=== PATIENT | female | born 1970 | race Caucasian/White ===

== ENCOUNTER 2018-12-16 11:37 | Outpatient (CLI) | payer OTHER | END 2018-12-16 11:38 | disposition home or self-care (01) | LOC: BICMAMMO 11:37 | PROVIDERS: ATTEND Family Medicine | DX: Z12.31 Encounter for screening mammogram for malignant neoplasm of breast (principal); R92.1 Mammographic calcification found on diagnostic imaging of breast; Z80.3 Family history of malignant neoplasm of breast | CPT/HCPCS: 77063; 77067 ==

== ENCOUNTER 2018-12-29 09:41 | Outpatient (CLI) | payer OTHER | END 2018-12-29 09:42 | disposition home or self-care (01) | LOC: BICMAMMO 09:41 | PROVIDERS: ATTEND Family Medicine | DX: R92.1 Mammographic calcification found on diagnostic imaging of breast (principal); Z80.3 Family history of malignant neoplasm of breast | CPT/HCPCS: G0279 ==

== ENCOUNTER → 2019-01-08 | Day surgery (SDC) | payer OTHER ==
--- NOTE | 2019-01-08 08:49 | MMO ---
MAMMO SURGICAL SPECIMEN: Date: 01/08/19 HISTORY: Stereotactic biopsy. COMPARISON: Mammogram dated 12/29/18. FINDINGS: A total of 12 half cores and 6 full cores were obtained through the upper outer right breast calcific ations. Including all of these samples, there is adequate calcifications within the sample. IMPRESSION: Adequate breast calcifications within the sample. POS: MAGDA
--- NOTE | 2019-01-08 09:09 | MMO ---
DIAGNOSTIC RIGHT BREAST MAMMOGRAM: Date: 01/08/19 HISTORY: Breast calcifications. Post stereotactic biopsy clip placement. COMPARISON: Mammogram from 12/29/18. FINDINGS: There is satisfactory appearance of the clip, which is embedded within the breast calcifications. The re is decreased calcification burden in the right upper outer breast. IMPRESSION: Satisfactory clip placement. POS: MAGDA
--- NOTE | 2019-01-08 09:15 | MMO ---
STEREOTACTIC RIGHT BREAST CALCIFICATION BIOPSY: Date: 01/08/19 HISTORY: Right upper outer breast calcifications. COMPARISON: Mammogram dated 12/29/18. FINDINGS: The patient was brought to the stereotactic breast suite. All questions were answered. Informed conse nt obtained. Timeout performed. The patient's right breast was prepped and draped in the normal sterile fashion. A total of 12 one-yang lf cores and a total of 6 full cores were obtained using a 10 gauge needle. Adequate calcifications w ere present within the biopsy specimen. The patient tolerated the procedure well without complication . IMPRESSION: Technically successful stereotactic right breast upper outer calcifications biopsy. POS: MAGDA
== END ==
LOC: MAMMO 06:42
PROVIDERS: ATTEND Family Medicine
PROC: 0HBT3ZX Excision of Right Breast, Percutaneous Approach, Diagnostic (ICD-10-PCS; principal; 2019-01-08)
DX: D05.11 Intraductal carcinoma in situ of right breast (principal); Z88.8 Allergy status to other drugs, medicaments and biological substances
CPT/HCPCS: 19081; 76098; 88305; 88341; 88342; 89060

== ENCOUNTER 2019-03-12 00:03 | Outpatient (CLI) | payer OTHER ==
[2019-03-12 14:09] LABS: #Basophils 0.1 thou/uL (0.0-0.2); #Eosinphils 0.2 thou/uL (0.0-0.7); #Lymphocytes 2.8 thou/uL (1.20-3.40); #Monocytes 0.7 thou/uL (0.11-0.59); #Neutrophils 3.4 thou/uL (1.40-6.50); %Basophils 1.5 % (0.0-1.0); %Eosinophils 2.9 % (0.0-10.0); %Lymphocytes 39.5 % (21.0-51.0); %Monocytes 9.1 % (0.0-10.0); Hemoglobin 9.3 g/dL (12.0-16.0); Mean Corpuscular HGB CONC 31.7 g/dL (32.0-36.0); Mean Corpuscular Hemoglobin 27.9 pg (27.0-31.0); Mean Platelet Volume 8.4 fL (7.4-10.4); Platelet Count 280 thou/uL (130-400); RBC Distribution Width 13.7 % (11.5-14.5); Red Blood Cell (RBC) Count 3.34 mill/uL (4.20-5.40); White Blood Cell (WBC) Count 7.2 thou/uL (4.8-10.8)
[2019-03-12 14:33] LABS: ALT (SGPT) 14 U/L (8-55); AST (SGOT) 17 U/L (5-34); Albumin 4.3 g/dL (3.5-5.0); Alkaline Phosphatase 34 U/L (40-150); Anion Gap 10 mmol/L (10-20); BUN (Urea Nitrogen) 10 mg/dL (7.0-18.7); Bilirubin, Total 0.3 mg/dL (0.2-1.2); Calc. Creatinine Clearance 0 mL/min (70-130); Calcium 10.1 mg/dL (7.8-10.44); Carbon Dioxide 30 mmol/L (22-29); Chloride 102 mmol/L (98-107); Estimated GFR-MDRD 87; Globulin 2.9 g/dL (2.4-3.5); Glucose 83 mg/dL (70-105); Potassium 4.1 mmol/L (3.5-5.1); Protein, Total 7.2 g/dL (6.0-8.3); Sodium 138 mmol/L (136-145)
[2019-03-12 14:36] LABS: BHCG - Serum Negative (NEGATIVE); Pregs Control Background? CLEAR/WHITE (CLR/WHITE); Pregs Control Bar Appear? YES (CONTROL BAR)
== END 2019-03-12 00:04 | disposition home or self-care (01) ==
LOC: LABBT 00:03
PROVIDERS: ATTEND Surgery
DX: Z01.818 Encounter for other preprocedural examination (principal); D05.11 Intraductal carcinoma in situ of right breast
CPT/HCPCS: 80053; 84703; 85025; 93005; 93010

== ENCOUNTER 2019-03-13 07:05 | Day surgery (SDC) | payer OTHER ==
[2019-03-12 11:54] VITALS: BMI 32.0
--- NOTE | 2019-03-13 10:13 | NM ---
RIGHT BREAST LYMPHOSCINTIGRAPHY: INDICATION: DCIS of the right breast Radial pharmaceutical: 365 microcuries of technetium 99m filtered sulfur colloid TECHNIQUE: The right nipple areolar complex was cleansed with alcohol. The radiotracer was injected w ithin the subcutaneous tissues surrounding the nipple areolar complex in 4 separate aliquots. The patient tolerated the injection without difficulty. FINDINGS: There is radiotracer accumulation within the first draining lymph node of the anterior righ t axilla. This was marked on patient's skin. There is radiotracer seen surrounding the right nipple areolar complex. IMPRESSION: Successful right breast lymphoscintigraphy Transcribed Date/Time: 03/13/2019 10:26 AM
[2019-03-13] MEDS ORDERED: Bupivacaine HCl 0.5%/Epinephrine 1:200,000/PF 30 ml Vial ONE (10:24)
[2019-03-13] MEDS ORDERED: Lidocaine 2% PF 5 ML VIAL ONE (10:24)
[2019-03-13] MEDS ORDERED: Isosulfan Blue 50 MG/5 ML VIAL ONE (10:24)
[2019-03-13] MEDS ORDERED: Fentanyl 100 MCG/2 ML VIAL ONE (10:30)
[2019-03-13] MEDS ORDERED: Midazolam HCl 2 mg/2 ml Vial ONE (10:30)
--- NOTE | 2019-03-13 11:50 | MMO ---
The surgical speciman contains the suspicious cluster of microcalcifications, clip and wire. Findings called to Dr. Carrillo in the operating room at 11:45 am 03/13/2019.
--- NOTE | 2019-03-13 11:57 | MMO ---
Right breast mammographic guided needle and wire localization INDICATION: DCIS of the right breast TECHNIQUE: Informed consent was obtained. The biopsy clip and suspicious cluster of calcifications found to represent DCIS seen within the upper outer aspect of the anterior right breast was localized. The right breast was placed in a CC compression. The skin was sterilely prepped. Buffered 1% lidocaine was demonstrated to the overlying subcutaneous tissues. Under mammographic guidance, a 3 cm [place] needle was guided through the clustered calcifications, adjacent to the biopsy clip. Needle tip position in relationship to the cluster of calcifications was confirmed on the lateral projection. The needle tip is seen 1.7 cm from the level of the cluster of calcifications and biopsy clip. The wire was deployed. The needle and wire were then fixated to the patient's right chest wall prior to leaving for the radiology department for follow-up right breast lymphoscintigraphy. Patient tolerated procedure without difficulty. IMPRESSION: BI-RADS Category 6-known biopsy proven. Successful needle and wire localization of region of DCIS of the right breast.
[2019-03-13] MEDS ORDERED: Meperidine HCl/PF 25 MG/ML VIAL ONE (12:15)
[2019-03-13] MEDS ORDERED: Dexamethasone 20 MG/5 ML VIAL ONE (17:19)
[2019-03-13] MEDS ORDERED: PROPOFOL 200 MG/20 ML VIAL ONE (17:19)
[2019-03-13] MEDS ORDERED: Lidocaine 1% PF 5 ML VIAL ONE (17:19)
[2019-03-13] MEDS ORDERED: Ketorolac Tromethamine 30 MG/ML VIAL ONE (17:19)
[2019-03-13] MEDS ORDERED: Ondansetron PF 4 MG/2 ML Vial ONE (17:19)
--- NOTE | 2019-03-16 09:37 | OP ---
DATE OF PROCEDURE: 03/13/2019 PREOPERATIVE DIAGNOSIS: Ductal carcinoma in situ, right breast. PROCEDURES PERFORMED: Lymphoscintigraphy, right sentinel lymph node biopsy, and right partial mastectomy. INDICATIONS FOR PROCEDURE: This is a 48-year-old female, who had an abnormal mammogram. She also has very ptotic breast, that is under evaluation for mammoplasty in the future. She had a core biopsy, which was positive for ductal carcinoma in situ. FINDINGS: A single sentinel lymph node was found. Successful removal of the target lesion, and previous clip and wire were removed by specimen mammogram. DESCRIPTION OF PROCEDURE: After informed consent was obtained, the patient was taken to the operating room. She had undergone marking by the plastic surgeon to guide us on where not to make incisions. She had undergone placement of a wire and mammography as well as injection of radionucleotide. She was given general endotracheal anesthesia, and her chest, axilla and chest wall were prepped and draped in usual fashion. Lymphazurin 3 mL was infiltrated subcutaneous and subareolar. The Neoprobe was used. Baseline with counts around 30 were performed. Transcutaneous counts of 500 were found in one spot in the axilla. Local anesthesia was infiltrated subcutaneously and deep, and a transverse axillary incision was performed. Subcu was divided sharply. The deltopectoral fascia was incised and a blue lymph node was found. This had very high counts of over 1200. This lymph node was dissected out. Efferent and afferent lymphatics were ligated with 3-0 Vicryl ties. Ex vivo counts of 1500 were found. This node was sent as sentinel node. Residual counts were all 30 or less. Then, a curvilinear incision was performed within the prescribed boundaries by the plastic surgeon. The subcu was divided sharply to the needle. The needle was brought through the skin into the field of vision. A core breast tissue was excised around the needle sharply. This was marked with the needle anterior, a blue suture superior and a white suture lateral, sent to mammography, which revealed it did contain the clip, the suspicious area and the needle, sent to pathology for further analysis. Hemostasis was achieved with electrocautery. Wound was thoroughly irrigated. Subcu was reapproximated with interrupted 3-0 Vicryl, skin closed with a running subcuticular 4-0 Rapide. The axilla was closed, subcu with interrupted 3-0 Vicryl and the skin closed with a running subcuticular 4-0 Rapide. Steri-Strips applied. Sterile bandage was applied. The patient tolerated the procedure well, transferred to Recovery in good condition. Sponge and needle count verified and correct x2. Job ID: [id number]
== END 2019-03-13 14:07 | disposition home or self-care (01) ==
LOC: SDC 07:05
PROVIDERS: ATTEND Surgery
PROC: 0HBT0ZZ Excision of Right Breast, Open Approach (ICD-10-PCS; principal; 2019-03-13)
PROC: 07B50ZX Excision of Right Axillary Lymphatic, Open Approach, Diagnostic (ICD-10-PCS; principal; 2019-03-13)
DX: D05.11 Intraductal carcinoma in situ of right breast (principal); I10 Essential (primary) hypertension; Z79.899 Other long term (current) drug therapy; Z88.6 Allergy status to analgesic agent; Z88.1 Allergy status to other antibiotic agents
CPT/HCPCS: 19281; 76098; 78195; 88307; 88342; A9541; J0670; J0690; J1100; J1885; J2001; J2175; J2250; J2405; J2704; J3010; Q9968

== ENCOUNTER 2019-04-03 09:38 | Day surgery (SDC) | payer OTHER ==
[2019-04-03] MEDS ORDERED: Heparin 5,000 UNITS/ML VIAL ONE (10:31)
[2019-04-03] MEDS ORDERED: Scopolamine 1.5 mg/72 hour Patch ONE (11:08)
[2019-04-03] MEDS ORDERED: Midazolam HCl 2 mg/2 ml Vial ONE (12:07)
[2019-04-03] MEDS ORDERED: Ondansetron PF 4 MG/2 ML Vial ONE (12:57)
[2019-04-03] MEDS ORDERED: Rocuronium Bromide 10 MG/ML (10ML VIAL) ONE (12:57)
[2019-04-03] MEDS ORDERED: PHENYLEPHRINE-NS 100 MCG/ML 10 ML SYRINGE ONE (12:57)
[2019-04-03] MEDS ORDERED: Lidocaine 1% PF 5 ML VIAL ONE (12:57)
[2019-04-03] MEDS ORDERED: Dexamethasone 20 MG/5 ML VIAL ONE ×2 (12:57→13:10)
[2019-04-03] MEDS ORDERED: PROPOFOL 200 MG/20 ML VIAL ONE (12:57)
[2019-04-03] MEDS ORDERED: ePHEDrine 50 MG/ML VIAL ONE (12:57)
[2019-04-03] MEDS ORDERED: Fentanyl 250 MCG/5 ML VIAL ONE (13:03)
[2019-04-03] MEDS ORDERED: Bacitracin Zinc Ointment 30 gm TUBE ONE (13:10)
[2019-04-03] MEDS ORDERED: EPINEPHrine 1 MG/ML AMP ONE (13:10)
[2019-04-03] MEDS ORDERED: Bupivacaine/Epinephrine 0.25% 30 ML VIAL ONE (13:10)
[2019-04-03] MEDS ORDERED: Lidocaine 1% (PF) 30 ML VIAL ONE (13:10)
[2019-04-03] MEDS ORDERED: Gentamicin 80 MG/2 ML VIAL ONE (13:10)
[2019-04-03] MEDS ORDERED: Isosulfan Blue 50 MG/5 ML VIAL ONE (13:11)
[2019-04-03] MEDS ORDERED: Bupivacaine HCl 0.5%/Epinephrine 1:200,000/PF 30 ml Vial ONE (13:11)
[2019-04-03] MEDS ORDERED: Fentanyl 100 MCG/2 ML VIAL ONE ×2 (15:34→16:48)
[2019-04-03] MEDS ORDERED: Phenylephrine HCL 10 MG/ML VIAL ONE (15:43)
[2019-04-03] MEDS ORDERED: Promethazine HCl 25 MG/ML VIAL ONE (16:43)
[2019-04-03] MEDS ORDERED: HYDROcodone/Acetaminophen 5/325 mg Tablet ONE ×2 (18:12→18:13)
--- NOTE | 2019-04-06 08:56 | OP ---
DATE OF PROCEDURE: 04/03/2019 PREOPERATIVE DIAGNOSIS: Extensive ductal carcinoma in situ, right breast. PROCEDURE PERFORMED: Bilateral total mastectomy. INDICATIONS: This is a 48-year-old female, who had ductal carcinoma in situ of the right breast on initial core biopsy, underwent lumpectomy or partial mastectomy and showed extensive multifocal DCIS with positive margins everywhere. At that time, we did a sentinel lymph node biopsy, it was negative, but no invasive cancer was seen. The patient was already scheduled for reduction mammoplasty, so we combined the reduction with bilateral total mastectomies and then Dr. Nielson did reconstruction. FINDINGS: Really just very large ptotic breasts. There was not any obvious recurrent cancer or carcinoma in situ. On the right, one of the axillary nodes which was in the tail was a little bit enlarged, so that was included with the specimen. DESCRIPTION OF PROCEDURE: After informed consent was obtained, the patient was taken to the operating room. She had given general endotracheal anesthesia, Dr. Nielson had preoperatively marked her for the reconstruction, started on the left side, the noninvolved side, and Dr. Nielson did a de-epithelialization of the inferior flap. Then, I performed a skin incision which was more of a James brown shirt picture of [employer], then created skin flaps, identifying the junction between subcutaneous tissue and breast tissue. The flaps were developed utilizing the plasma blade to level of the clavicle superior latissimus laterally, sternum medially, and the rectus inferiorly, taken off the pectoralis muscle to include the fascia. Hemostasis was marked with a suture superior. Hemostasis achieved with the plasma blade. The wound was thoroughly irrigated. Then, Dr. Nielson had already done the de-epithelialization on the right, moved to the right, did the same thing, made skin incisions through the [place] origami incisions, created skin flaps, removed the breast, marked it superior with the stitch. Hemostasis achieved with the plasma blade. The wound was thoroughly irrigated. Then, Dr. Nielson did the reconstruction. Job ID: [id number]
--- NOTE | 2019-04-06 08:58 | OP ---
DATE OF PROCEDURE: 04/03/2019 PREOPERATIVE DIAGNOSES: 1. Right ductal carcinoma in situ. 2. Bilateral surgical absence of breasts. POSTOPERATIVE DIAGNOSES: 1. Right ductal carcinoma in situ. 2. Bilateral surgical absence of breasts. PROCEDURES PERFORMED: 1. Bilateral internal Yonas flaps. 2. Bilateral nipple reconstruction. DESCRIPTION OF PROCEDURE: Following induction of adequate anesthesia, the patient prepped and draped in usual sterile fashion in supine position. The patient underwent simultaneous double mastectomies. The initiation of the procedure was done by harvesting the nipples as full-thickness skin grafts. These were stored during the procedure. An inferior flap of skin was then de-epithelialized. The skin was then raised. It was approximately 10 x 20 cm in area and oval shaped. This was then raised as a mastectomy flap. The completion mastectomy was then performed with Shah pattern. The Shah pattern closure was then achieved with interrupted 3-0 Monocryl with superior placement of the de-epithelialized Yonas flap under the mastectomy flaps. Seprafilm was placed beneath the de-epithelialized Yonas flap. The inverted T closure was achieved with interrupted and running 3-0 Monocryl suture. The nipple was inset through a de-epithelialized nipple defect with interrupted and running Prolene sutures. The patient tolerated the procedure well. Job ID: [id number]
== END 2019-04-03 19:00 | disposition home or self-care (01) ==
LOC: SDC 09:38
PROVIDERS: ATTEND Plastic Surgery
PROC: 0HR Skin and Breast, Replacement (ICD-10-PCS; principal; 2019-04-03)
DX: D05.11 Intraductal carcinoma in situ of right breast (principal); N64.81 Ptosis of breast; I10 Essential (primary) hypertension; Z90.13 Acquired absence of bilateral breasts and nipples; Z79.899 Other long term (current) drug therapy; Z88.8 Allergy status to other drugs, medicaments and biological substances; Z91.041 Radiographic dye allergy status
CPT/HCPCS: 88307; J0131; J0171; J0670; J0690; J1100; J1580; J1644; J2001; J2250; J2370; J2405; J2550; J2704; J3010; J3370; J3490; Q9968

== ENCOUNTER 2019-05-11 07:55 | Outpatient (CLI) | payer OTHER ==
[2019-05-11 09:07] LABS: #Basophils 0.1 thou/uL (0.0-0.2); #Eosinphils 0.3 thou/uL (0.0-0.7); #Lymphocytes 3.2 thou/uL (1.20-3.40); #Monocytes 0.7 thou/uL (0.11-0.59); %Basophils 1.4 % (0.0-1.0); %Eosinophils 3.6 % (0.0-10.0); %Lymphocytes 38.8 % (21.0-51.0); %Neutrophils 48.2 % (42.0-75.0); Hemoglobin 8.5 g/dL (12.0-16.0); Mean Corpuscular HGB CONC 30.3 g/dL (32.0-36.0); Mean Corpuscular Hemoglobin 25.6 pg (27.0-31.0); Mean Corpuscular Volume 84.3 fL (78.0-98.0); Mean Platelet Volume 8.3 fL (7.4-10.4); Platelet Count 308 thou/uL (130-400); RBC Distribution Width 14.5 % (11.5-14.5); Red Blood Cell (RBC) Count 3.32 mill/uL (4.20-5.40); White Blood Cell (WBC) Count 8.3 thou/uL (4.8-10.8)
[2019-05-11 09:09] LABS: BHCG - Serum Negative (NEGATIVE); Pregs Control Background? CLEAR/WHITE (CLR/WHITE); Pregs Control Bar Appear? YES (CONTROL BAR)
== END 2019-05-11 07:56 | disposition home or self-care (01) ==
LOC: LABBT 07:55
PROVIDERS: ATTEND Obstetrics & Gynecology
DX: Z01.812 Encounter for preprocedural laboratory examination (principal); N92.0 Excessive and frequent menstruation with regular cycle; D21.9 Benign neoplasm of connective and other soft tissue, unspecified; D64.9 Anemia, unspecified; Z80.3 Family history of malignant neoplasm of breast
CPT/HCPCS: 84703; 85025

== ENCOUNTER 2019-05-11 08:00 | Inpatient (IN) | payer OTHER ==
--- NOTE | 2019-05-05 09:44 | HP ---
HISTORY OF PRESENT ILLNESS: Ms. Rebollar is a 48-year-old white female, G2, P2, recently diagnosed with the right ductal carcinoma in situ of the breast with multifocal lesions. She is status post bilateral mastectomy with sentinel node biopsies, which were negative. She has an estrogen receptor positive breast cancer and is followed by Dr. Borjas. The patient has a significant family history of having breast cancer in a maternal grandmother and a maternal aunt. Her BRCA screening was negative. She also is reporting heavy menstrual bleeding and was noted to be anemic with her preop for her initial biopsy of 9.8. She was evaluated in my office in March of last month for the recent DCIS diagnoses along with a strong family history of ovarian cancer. She was evaluated with an ultrasound and exam including a Pap smear, which was negative for abnormal cells and negative for her HPV testing. She had enlarged uterus on exam and the pelvic ultrasound, for this was ordered in my office. The uterus measured 9.1 x 9.6 x 8.8 cm with the endometrial lining thickness of 13.53 mm. She had an anterior uterine fibroid measuring 5.2 x 5.1 x 5.3 cm. Bilateral ovaries and adnexal structure were normal in appearance. PAST MEDICAL HISTORY: As per history of present illness and also with some insomnia issues and chronic tension headaches. PAST SURGICAL HISTORY: As noted. She has had a gastric bypass for obesity and also recent breast biopsy and bilateral mastectomies with sentinel node biopsies. ALLERGIES: ESSENTIALLY, NO KNOWN DRUG ALLERGIES. SHE HAS A SIDE EFFECT OF DIARRHEA ASSOCIATED WITH AUGMENTIN. SOCIAL HISTORY: She is a nonsmoker. No excessive alcohol use. FAMILY HISTORY: Noted malignant tumor ovary in the breast of a maternal aunt and grandmother, malignant tumor of colon in a grandfather. Hypertension in father, mother, and diabetes. CURRENT MEDICATIONS: 1. Amitriptyline 50 mg at for sleep. 2. Zanaflex 4 mg as needed for tension headaches. 3. Tramadol 50 mg p.o. q.6 hours p.r.n. tension headaches. She is currently taking some [place] for her recent breast mastectomies. PHYSICAL EXAMINATION: VITAL SIGNS: Her height is 5 feet 2 inches, weight 179 with a BMI of 32.7. Blood pressure is normal at 122/70, pulse 87, respirations 18, O2 saturations 99% on room air. HEENT: Within normal limits. CHEST: Clear to auscultation. HEART: Regular rate and rhythm. S1 and S2 heart sounds. She has a bilateral breast bandages on with bilateral JASWINDER drains noted. ABDOMEN: Soft, nontender, nondistended with no palpable masses. PELVIC: Vulva and vagina had no lesions. Cervix had no lesions. Uterus was about 8- to 10-week size, nontender. Adnexa were nontender with no masses. ASSESSMENT: This is a 48-year-old white female recently diagnosed with ductal carcinoma in situ, multifocal, with a strong family history of breast cancer and ovarian cancer. She is recently status post bilateral mastectomy for treatment of her breast ductal carcinoma in situ. She has also menorrhagia with documented anemia and was noted to have uterine fibroids on recent pelvic ultrasound evaluation. PLAN: Plan is to proceed with robotic total laparoscopic hysterectomy with bilateral salpingo-oophorectomy on 05/12/2019. Risks and benefits of the procedure were discussed in detail. She is set for surgery. Job ID: [id number]
[2019-05-12] MEDS ORDERED: CeleCOXIB 100 MG CAP ONE (06:40)
[2019-05-12] MEDS ORDERED: Famotidine/PF 20 mg/2ml Vial ONE (06:40)
[2019-05-12] MEDS ORDERED: Gabapentin 300 MG CAP ONE (06:40)
[2019-05-12] MEDS ORDERED: Fentanyl 250 MCG/5 ML VIAL ONE (06:41)
[2019-05-12] MEDS ORDERED: Midazolam HCl 2 mg/2 ml Vial ONE (07:05)
[2019-05-12] MEDS ORDERED: Scopolamine 1.5 mg/72 hour Patch ONE (07:06)
[2019-05-12] MEDS ORDERED: Bupivacaine HCl 0.5%/Epinephrine 1:200,000/PF 30 ml Vial ONE (07:10)
[2019-05-12] MEDS ORDERED: Bisacodyl 10 MG SUPP PR PRN (09:30)
[2019-05-12] MEDS ORDERED: Simethicone Chewable 80 MG TAB PO PRN (09:30)
[2019-05-12] MEDS ORDERED: Morphine 4 MG/ML VIAL SLOW IVP PRN (09:30)
[2019-05-12] MEDS ORDERED: Ondansetron PF 4 MG/2 ML Vial IVP PRN (09:30)
[2019-05-12] MEDS ORDERED: diphenhydrAMINE 25 MG CAP PO PRN (09:30)
[2019-05-12] MEDS ORDERED: Promethazine HCl 25 MG/ML VIAL IM PRN ×2 (09:30→09:46)
[2019-05-12] MEDS ORDERED: Zolpidem Tartrate 5 MG TAB PO PRN (09:30)
[2019-05-12] MEDS ORDERED: Promethazine HCl 25 MG/ML VIAL SLOW IVP PRN (09:46)
[2019-05-12] MEDS ORDERED: Ondansetron HCl/PF 4 MG/2 ML Vial IVP PRN (09:46)
[2019-05-12] MEDS ORDERED: Meperidine HCl/PF 25 MG/ML VIAL ONE (09:46)
[2019-05-12] MEDS ORDERED: Meperidine HCl/PF 25 MG/ML VIAL SLOW IVP PRN (09:46)
[2019-05-12] MEDS ORDERED: Fentanyl 100 MCG/2 ML VIAL ONE ×3 (09:55→10:47)
[2019-05-12] MEDS ORDERED: Ketorolac Tromethamine 30 MG/ML VIAL IVP SCH (12:00)
[2019-05-12] MEDS: Sodium Chloride 0.9% 1,000 ML IV SCH ×2 (13:06→18:39)
[2019-05-12] MEDS: Acetaminophen 1,000 MG in Premix Bag 1 BAG IVPB SCH ×2 (13:08→18:50)
[2019-05-12] MEDS ORDERED: PROPOFOL 200 MG/20 ML VIAL ONE (15:15)
[2019-05-12] MEDS ORDERED: Rocuronium Bromide 10 MG/ML (10ML VIAL) ONE (15:15)
[2019-05-12] MEDS ORDERED: Glycopyrrolate 0.2 MG/ML 5 ML SYRINGE ONE (15:15)
[2019-05-12] MEDS ORDERED: PHENYLEPHRINE-NS 100 MCG/ML 10 ML SYRINGE ONE (15:15)
[2019-05-12] MEDS ORDERED: Ondansetron PF 4 MG/2 ML Vial ONE (15:15)
[2019-05-12] MEDS ORDERED: Dexamethasone 20 MG/5 ML VIAL ONE (15:15)
[2019-05-12] MEDS ORDERED: Lidocaine 1% PF 5 ML VIAL ONE (15:15)
--- NOTE | 2019-05-12 15:16 | OP ---
DATE OF PROCEDURE: 05/12/2019 PREOPERATIVE DIAGNOSES: 1. History of estrogen receptor positive multifocal ductal carcinoma in situ of the right breast, status post mastectomy. 2. Family history of breast cancer. 3. Menorrhagia with pre-tilting anemia. 4. Uterine fibroids. POSTOPERATIVE DIAGNOSES: 1. History of estrogen receptor positive multifocal ductal carcinoma in situ of the right breast, status post mastectomy. 2. Family history of breast cancer. 3. Menorrhagia with pre-tilting anemia. 4. Uterine fibroids. PROCEDURE PERFORMED: Robotic total laparoscopic hysterectomy and bilateral salpingo-oophorectomy. PUBLIC HEALTH EDUCATOR: Shaylee De La Vega PA-C ANESTHESIA: General endotracheal. ESTIMATED BLOOD LOSS: 150 mL. COMPLICATIONS: None. COUNTS: Correct x2. ANTIBIOTICS: 2 g Ancef, on-call to OR. FINDINGS: 1. Bilateral normal-appearing fallopian tubes and ovaries. 2. Uterus was enlarged with approximately a 5-cm left anterior intramural fibroid and the uterus in general was adenomyotic in appearance. 3. Clear urine present in Oneil catheter postprocedure and bladder was watertight to distention over 300 mL postprocedure. 4. Bilateral ureteral peristalsis visualized postprocedure. DISPOSITION: Recovery room, stable. DESCRIPTION OF PROCEDURE: The patient previously received an informed consent in regard to surgery. She was taken back to the operating room, where she received a general endotracheal anesthetic agent without complications. She was placed in dorsal supine position with use of [place] stirrups and prepped and draped in usual sterile fashion. Oneil catheter in place at this time. A side-arm speculum was placed in the vagina. The anterior lip of the cervix was grasped with single-tooth tenaculum. The uterus sounded to 9 cm. A size 8 cm THOMAS uterine manipulator with a 4.0 cm cervical cup was fitted in place. Tenaculum and speculum were removed. Attention was then turned to the abdomen, where perspective trocar sites were infiltrated with 0.5% Marcaine with epinephrine. A 12-mm supraumbilical incision was made. Veress needle was entered into the peritoneal cavity. The patient's pressure was noted to be less than 5 mm and the abdomen was insufflated with the patient's pressure of 15 approximately 5 L of carbon dioxide gas. Veress needle was then removed. Size 12 mm trocar was then placed. The laparoscope was introduced through trocar sleeve confirming proper entry. Additional bilateral lower quadrant 8-mm robotic trocars were placed along with the right upper quadrant 11 mm bindery library technical assistant port. The patient was then placed in Trendelenburg position and robot was docked. I then broke scrub and then proceeded to carry out the procedure from the operative console while my assistants remained at the bedside. The uterus was elevated from the pelvis. The left fallopian tube was grasped by my bindery library technical assistant. The left IP ligament was then coagulated with the bipolar fenestrated cautery and transected. Serial coagulation of the broad ligament hugging close to the uterus was carried out until the left round ligament was reached. It was coagulated and transected. The anterior leaf of the broad ligament was then entered. Vesicouterine peritoneal dissection was initiated. There was some difficulty seen anteriorly due to position of the fibroid. We therefore skeletonized the left uterine vessels more and coagulated them in internal cervical os region and then proceeded to work on the right side of the uterus. The right IP ligament was isolated, was coagulated close to the ovary and transected. Serial coagulation of the broad ligament hugging close to the specimen was carried out with coagulation transection with monopolar scissors until the right round ligament was reached. It was coagulated and transected. Anterior leaf of the broad ligament was then entered. The vesicouterine peritoneal incision was made. The bladder was atraumatically dissected off the lower uterine segment and past the cervix with both sharp and blunt dissection. We were able to see well from this side and carried this all the way around the cervix to the left side. The bladder was dropped atraumatically past the cervical vaginal margin, which was delineated by the cup of the manipulator. The uterine vessels on the right sides were then skeletonized and transected. We then completed the dissection of the vesicouterine peritoneum on the patient's left side and skeletonization of the left vessels and coagulation in the internal cervical os region. The posterior colpotomy was then initiated starting from 6 o'clock to 3 o'clock and 6 o'clock to 9 o'clock position. The uterus flopped backwards into the way to the fibroid and the anterior colpotomy was completed from 12 o'clock to 3 o'clock and 12 o'clock to 9 o'clock in similar fashion securing the vessels. Once this had been completed, the specimen was then pulled through the vaginal cuff opening by my assistants. Once this was accomplished, the vaginal cuff was then cauterized of any remaining oozing or bleeders with bipolar fenestrated cautery. The needle bicycle taxi driver had been switched out for the monopolar scissors and then the vaginal cuff was closed by my bindery library technical assistant bringing in a Stratafix. The cuff was closed in double-layer closure from the right angle to the left angle back to the right angle securing hemostasis with good approximation of cuff closure. The pelvis was again irrigated and suctioned. The bladder had been distended and was noted to be watertight and clear urine was draining from the Oneil catheter. Bilateral ureteral peristalsis was visualized. The pedicle sites were hemostatic. The robot was then undocked. Trocar sleeves were removed. A deep stitch of 0 Vicryl was placed in a [id number] stitch fashion in the umbilical fascial defect. The remainder of the trocar sites were closed with 4-0 Monocryl and Dermabond. A sponge stick was utilized to check the vaginal vault and it was noted to be hemostatic. The patient was awakened from anesthesia and transferred to recovery room in stable condition. Job ID: [id number]
[2019-05-12 17:39] LABS: Hemoglobin 7.6 g/dL (12.0-16.0); Mean Corpuscular HGB CONC 30.5 g/dL (32.0-36.0); Mean Platelet Volume 8.3 fL (7.4-10.4); Platelet Count 331 thou/uL (130-400); RBC Distribution Width 14.5 % (11.5-14.5); Red Blood Cell (RBC) Count 3.01 mill/uL (4.20-5.40); White Blood Cell (WBC) Count 13.5 thou/uL (4.8-10.8)
[2019-05-12] MEDS: Multivitamins CHEW w/Iron Tablet PO SCH ×2 (17:41→22:02)
[2019-05-12] MEDS: Ketorolac Tromethamine 30 MG/ML VIAL IVP SCH (18:49)
[2019-05-12] MEDS ORDERED: tiZANidine HCl 4 MG TAB PO PRN (21:00)
[2019-05-12] MEDS ORDERED: Amitriptyline HCl 25 MG TAB PO SCH ×2 (21:00)
[2019-05-12] MEDS: traMADol HCl 50 MG TAB PO PRN (21:57)
[2019-05-13] MEDS: traMADol HCl 50 MG TAB PO PRN ×3 (02:19→10:22)
[2019-05-13] MEDS: Ketorolac Tromethamine 30 MG/ML VIAL IVP SCH ×3 (02:19→14:38)
[2019-05-13] MEDS: Acetaminophen 1,000 MG in Premix Bag 1 BAG IVPB SCH ×2 (02:21→06:25)
[2019-05-13] MEDS: Sodium Chloride 0.9% 1,000 ML IV SCH ×3 (06:14→16:02)
[2019-05-13 06:47] LABS: Hemoglobin 6.2 g/dL (12.0-16.0); Mean Corpuscular HGB CONC 29.2 g/dL (32.0-36.0); Mean Corpuscular Hemoglobin 24.5 pg (27.0-31.0); Mean Corpuscular Volume 83.9 fL (78.0-98.0); Mean Platelet Volume 8.1 fL (7.4-10.4); Platelet Count 200 thou/uL (130-400); RBC Distribution Width 14.6 % (11.5-14.5); Red Blood Cell (RBC) Count 2.52 mill/uL (4.20-5.40); White Blood Cell (WBC) Count 9.5 thou/uL (4.8-10.8)
[2019-05-13 07:38] VITALS: BMI 31.4
[2019-05-13] MEDS ORDERED: Acetaminophen 325 MG TAB PO PRN (08:00)
[2019-05-13] MEDS ORDERED: Calcium Carbonate + Vit D 1 TAB PO SCH (09:00)
[2019-05-13] MEDS ORDERED: FLUoxetine HCl 20 MG CAP PO SCH (09:00)
[2019-05-13] MEDS: Multivitamins CHEW w/Iron Tablet PO SCH ×2 (09:34→14:41)
[2019-05-13] MEDS ORDERED: Sodium Chloride 0.9% 10 ML ONE (12:56)
[2019-05-13] MEDS ORDERED: Ibuprofen 800 MG TAB PO SCH (14:00)
[2019-05-13 15:55] VITALS: BP 158/68; TEMP 98.3
[2019-05-13 16:05] LABS: Hemoglobin 8.8 g/dL (12.0-16.0); Mean Corpuscular HGB CONC 30.6 g/dL (32.0-36.0); Mean Corpuscular Hemoglobin 25.5 pg (27.0-31.0); Mean Corpuscular Volume 83.3 fL (78.0-98.0); Mean Platelet Volume 8.4 fL (7.4-10.4); Platelet Count 241 thou/uL (130-400); RBC Distribution Width 15.2 % (11.5-14.5); Red Blood Cell (RBC) Count 3.43 mill/uL (4.20-5.40)
[2019-05-13] MEDS ORDERED: HYDROcodone/Acetaminophen 5/325 mg Tablet PO SCH (16:30)
--- NOTE | 2019-05-14 11:12 | DIS ---
DATE OF ADMISSION: 05/12/2019 DATE OF DISCHARGE: 05/13/2019 DIAGNOSES: 1. Personal history of ductal carcinoma in-situ of the breast, status post bilateral mastectomies. 2. Family history of breast cancer and ovarian cancer. 3. Menorrhagia and uterine fibroids. 4. Chronic anemia due to blood loss. PROCEDURES PERFORMED: 1. Robotic total laparoscopic hysterectomy and bilateral salpingo-oophorectomy. 2. Transfusion of 2 units packed red cells postoperatively. SUMMARY OF HOSPITAL COURSE: Ms. Rebollar is a 48-year-old white female, G2, P2, who was recently diagnosed with the right ductal carcinoma in-situ of the breast with multifocal lesions. She is recently status post bilateral mastectomy with sentinel node biopsy, which was negative. She has estrogen receptor positive breast cancer and is followed by Dr. Borjas of Oncology. Due to these history and also the heavy menstrual bleeding and uterine fibroids, she underwent definitive surgical therapy with robotic total laparoscopic hysterectomy, bilateral salpingo-oophorectomy. Starting hematocrit was 8.5 and postoperative day 1 hematocrit was 6.2. She had minimal symptoms in regard to this, but due to the level of the hemoglobin, she received 2 units of packed red cells with post transfusion hemoglobin of 8.8. Vital signs remained stable throughout. She is ambulating and voiding without difficulty. The afternoon of the surgery on postop day zero and also postop day #1. She was discharged home with [place] 7.5 mg p.o. q.6 hours p.r.n. pain, #20 and [id number] ibuprofen as directed. She has a scheduled followup in 2 and 6 weeks postoperatively. Currently, her pathology is pending at the time of this dictation. Job ID: [id number]
== END 2019-05-13 16:34 | disposition home or self-care (01) | DRG 743 ==
LOC: SURG A 05-12 05:24 → EDSTATUS 05-12 08:00 → 3SE 05-12 13:33
PROVIDERS: ADMIT Obstetrics & Gynecology; ATTEND Obstetrics & Gynecology
PROC: 0UT94ZZ Resection of Uterus, Percutaneous Endoscopic Approach (ICD-10-PCS; principal; 2019-05-12)
PROC: 0UT24ZZ Resection of Bilateral Ovaries, Percutaneous Endoscopic Approach (ICD-10-PCS; 2019-05-12)
PROC: 0UT74ZZ Resection of Bilateral Fallopian Tubes, Percutaneous Endoscopic Approach (ICD-10-PCS; 2019-05-12)
PROC: 8E0W4CZ Robotic Assisted Procedure of Trunk Region, Percutaneous Endoscopic Approach (ICD-10-PCS; 2019-05-12)
DX: D25.1 Intramural leiomyoma of uterus (principal); N92.0 Excessive and frequent menstruation with regular cycle; D64.9 Anemia, unspecified; G47.00 Insomnia, unspecified; Z86.000 Personal history of in-situ neoplasm of breast; Z90.13 Acquired absence of bilateral breasts and nipples; Z88.1 Allergy status to other antibiotic agents
CPT/HCPCS: 36415; 36430; 84703; 85025; 85027; 86850; 86900; 86901; 88307; J0131; J0670; J0690; J1100; J1885; J2001; J2175; J2250; J2270; J2405; J2704; J3010; P9016; S0028